=== PATIENT | male | born 1965 | race Caucasian/White ===

== ENCOUNTER 2024-09-27 12:47 | Emergency (ER) | payer OTHER ==
[~2024-09-27] VITALS: Ht 180.3 cm; Wt 90.6 kg
--- NOTE | 2024-09-27 13:26 | Physician Documentation ---
History of Present Illness ~ Chief Complaint: Toe pain Stated Complaint: POSS DVT Time Seen by MD: 15:40 OK to notify your PCP?: Yes Source: patient Mode of Arrival: POV [facility] Patient is seen today with complaints of pain and discoloration of his left great toe x 10 days. Patient states he just recently saw his primary care provider and was told he might have some kind of arterial occlusion and they were concerned for need for some kind of immediate intervention. Patient has no new or other concern or complaint at this time. Patient has history of extensive surgery to his right ankle however in his patient's left great toe that is in pain today. He reports for the past month having left hip pain which started radiating to his femur 3 weeks ago and down into the calf 1 week ago. He has had some extensive 10 hour car rides within the past month and several flights. He reports that his PCP did an x-ray of the left hip which was negative. Although he is still having pain with ambulation and standing can only walk about 100 yd before he has to rest. No anticoagulant use at home. Medication Reconciliation Allergies: Coded Allergies: No Known Allergies (Unverified , 09/27/24) Review of Systems All Other Systems at this time: Reviewed and Negative ROS Reviewed and negative except listed in HPI. Physical Exam Vital Signs: RN Vital Signs have been reviewed: Yes, Temperature: 98.0, Source: Temporal, Heart Rate: 94, Respiratory Rate: 18, BP: 147/81, Pulse Oximetry: 95, Weight: 90.600 Pulse Oximetry Reflects: adequate oxygenation Physical Exam General: conscious, coherent, non-toxic appearing, follows commands appropriately and in no apparent distress. Skin: Warm and dry without rash, good texture, and turgor. Neck: Supple. Trachea midline. No JVD. Chest: Good expansion without retractions or grunting. Lungs are clear to auscultation bilaterally. Heart: Regular rate and rhythm. S1 and S2 are normal. No murmurs, rubs, clicks, or gallops heard. Extremities: Full range of motion. Good strength, bilaterally. No clubbing. Peripheral pulses are intact, 2+ in left foot. Ecchymosis, tenderness and edema to left greater toe which is cool to the touch but good CSM. Tenderness to palpation of left calf. No tenderness to palpation of left hip, knee or thigh. Left MTP joint is normal on exam no evidence of edema, pain or redness. Neurologic: A&Ox4. Motor and sensory exam nonfocal. Moves all extremities. Speech is clear. Gait normal. CN II to XII intact. Progress Results/Orders Reviewed/noted all lab results: Yes Results/Orders Orders - THERESA CORTEZ OB/GYN Vl Venous (09/27/24 ) Vl Arterial (09/27/24 ) Vl Angelia (09/27/24 ) Cta Abdomen Lower Extr Runoff (09/27/24 18:30) Completed Orders - THERESA CORTEZ OB/GYN Vl Venous (09/27/24 ) Vl Arterial (09/27/24 ) Vl Angelia (09/27/24 ) Cbc/Diff (09/27/24 17:09) CMP (09/27/24 17:09) Ketorolac Trometh 30mg/Ml Vial (Toradol (09/27/24 17:25) Cta Abdomen Lower Extr Runoff (09/27/24 18:30) Iohexol 350mg/Ml 50ml Inj (Omnipaque 350 (09/27/24 18:20) Iohexol 350mg/Ml 100ml (Omnipaque 350mg/ (09/27/24 18:21) Vital Signs 09/27/24 09/27/24 09/27/24 09/27/24 13:18 16:10 18:17 19:44 Temp 98.0 98.0 98.0 Pulse 94 94 71 Resp 18 18 18 16 B/P (MAP) 147/81 142/84 (103) 100/52 (68) Pulse Ox 95 99 98 09/27/24 20:48 Temp 98.0 Pulse 62 Resp 16 B/P (MAP) 97/52 Pulse Ox 98 Laboratory Tests Test 09/27/24 17:17 White Blood Count 8.8 Red Blood Count 4.91 Hemoglobin 16.5 Hematocrit 46.8 Mean Corpuscular Volume 95.2 Mean Corpuscular Hemoglobin 33.5 H Mean Corpuscular Hemoglobin Concent 35.2 Red Cell Distribution Width 13.2 Platelet Count 213 Mean Platelet Volume 8.6 Neutrophils (%) (Auto) 53.3 Lymphocytes (%) (Auto) 33.6 Monocytes (%) (Auto) 7.5 Eosinophils (%) (Auto) 5.0 Basophils (%) (Auto) 0.6 Neutrophils # (Auto) 4.7 Lymphocytes # (Auto) 3.0 Monocytes # (Auto) 0.7 Eosinophils # (Auto) 0.4 Basophils # (Auto) 0.1 CBC Comment Sodium Level 143 Potassium Level 4.3 Chloride Level 108 H Carbon Dioxide Level 27.3 Anion Gap 8 Blood Urea Nitrogen 11 Creatinine 0.76 Estimated GFR/1.73 m2 > 90 BUN/Creatinine Ratio 14.5 Glucose Level 102 Calcium Level 8.5 Total Bilirubin 0.6 Aspartate Amino Transf (AST/SGOT) 17 Alanine Aminotransferase (ALT/SGPT) 30 Alkaline Phosphatase 80 Total Protein 6.3 L Albumin 3.6 Globulin 2.7 Albumin/Globulin Ratio 1.3 Chemistry Comments EKG/XRAY/CT/US/VASC/MRI Bone/Soft Tissue X-Ray (Ext.) : Interpreted By: self Views: 3 VIEW Additional Comment Left toe x-ray interpreted by me. Alignment is normal, no soft tissue swelling, no acute fracture. CT : Impression CT abdomen with extremities runoff interpreted by me. left lower extremity arteries are patent with no evidence of occlusion. There is some mild superficial subcutaneous edema at the left big toe. patent bilateral lower ex tremity arteries with no occlusion, dissection, aneurysm or critical stenosis. Vascular : Interpreted By: self Vascular Study: lower extremity arterial, lower extremity venous Impression Monophasic left leg, slow velocity, no DVT or occlusion. Medical Decision Making Findings Timmy is a 59-year-old male with left greater toe pain, ecchymosis, edema times 10 days. He does mention having left hip pain for the past month which is sensory radiated down to his calf in the past week. He does have some extensive travel with times of immobility in the past month. No known trauma to the leg. His physical exam reveals tenderness to his left calf and tenderness, ecchymosis, edema and cool to the touch left greater toe with good CSM in full range of motion. His MTP joint is not enlarged, hot or painful which would rule out a possible gout flare-up. Consulted with Dr. Best regarding assessment and treatment plan. He was evaluated by Dr. Best at the bedside. We ordered a left hip/extremity CT to rule out any acute fractures and a venous and arterial vascular study of the left leg to rule out an occlusion. His left leg Doppler arterial showed probable inflow disease from the left iliac with a monomorphic flow with low velocity. Left leg venous Doppler was negative for DVT. Due to this I have changed the CT of the hip to a CT angiogram of the left hip and ordered a CBC and CMP to check for infection, kidney function, liver function and electrolyte imbalances. CBC and CMP results are unremarkable, no evidence of kidney dysfunction. Offered morphine for pain control but patient declined and requested something less strong instead. IV Toradol ordered for pain relief. CT abdomen to lower extremity with runoff was ordered as it shows more of what we are looking for instead of just the left hip. And the results mentions all left lower extremity arteries are patent with no evidence of occlusion. There is some mild superficial subcutaneous edema at the left big toe. The impression shows patent bilateral lower extremity arteries with no occlusion, dissection, aneurysm or critical stenosis which is reassuring and this patient is stable for discharge. This patient was discharged with instructions to follow up with his primary care provider in the next 3 days who is located in [place] so I have attached his leg Doppler ultrasound results to his discharge paperwork so he can bring it with him have access to our EMR. He should return back here or any local emergency department for any new or worsening symptoms such as increase c oolness to his foot or toes, increased pain, or numbness/tingling of extremity. He was relieved to know that he would not need any admission or medications to be sent with him. He was instructed to use Tylenol and/or ibuprofen at home for pain relief. General Diff Dx:Considerations: Include: Neurovascular injury Toe Diff Dx:Considerations: Include: Cellulitis, Fracture, Hematoma, Neurovascular injury Additional Comment DVT, gout, arterial occlusion or arterial insufficiency. Departure Disposition: 01 HOME / SELF CARE / HOMELESS Impression: Primary Impression: Pain of toe Additional Impression: Toe swelling Condition: Stable Discharge Instructions: Acute Pain, Adult Additional Instructions: Follow-up with your primary care provider for a referral to a vascular surgeon. Today your ultrasound did not show any evidence of a DVT but did have some arterial inflow disease from the left iliac artery. There is no acute arterial occlusion that requires admission into the hospital. You can use Tylenol and ibuprofen to help with pain relief. Please return here for any new or worsening symptoms. Below is the results of your Doppler study for you to take in to the specialist. LEFT Lower Extremity Arterial Duplex Date: 09/27/2024 04:16 PM Clinical History: LEFT GREAT TOE DISCOLORATION AND PAIN Comparison: None Technique: Duplex Doppler evaluation including color Doppler and spectral/pulsed waveform analysis of the lower extremity arteries was performed. Finding: LEFT: Peak systolic velocities are as follows: GOLD LAYER 60.5 cm/s Deep femoral 34.3 cm/s SFA proximal 37.9 cm/s SFA mid-portion 49.9 cm/s SFA distal 30.7 cm/s Popliteal (AK) 17.8 cm/s Popliteal (BK) 30. cm/s Posterior tibial 32.2 cm/s Peroneal 18 cm/s Dorsalis pedis 18.6 cm/s The waveforms are monophasic waveform throughout. No findings of occlusion. REFERENCE VALUES, [facility]) vascular Imaging Lab Criteria: Peak systolic velocity ranges (in cm/sec) are as follows: <150 cm/s - <20 % stenosis 150-200 cm/s - 20-49% stenosis 200-300 cm/s - 50-75% stenosis >300 cm/s -> 75% stenosis IMPRESSION: 1. Findings consistent with inflow compromise throughout the left lower extremity. No segments of occlusion however there is monophasic waveform throughout. 2. No significant focal stenosis is identified. HS:Y Referrals: NO PRIMARY CARE PROVIDER (PCP) Education Educated: Patient, Family Educated regarding: diagnosis, treatment, prognosis, need for follow up Signature Scribe Signature: . Attestation: Scribed for Theresa Cortez [employer] by Theresa Ignacio NP . 09/30/24 14:49 MICHEAL PRINCE PAC September 27, 2024 13:26 THERESA CORTEZ OB/GYN September 27, 2024 16:03
--- NOTE | 2024-09-27 14:57 | RADIOLOGY REPORT ---
DI TOE(S), INDICATION: TOE PAIN TECHNICAL DATA: Frontal view of the left foot and lateral and oblique views of the great toe were obt ained. COMPARISON: None FINDINGS: No fracture is identified. Joint spaces are maintained. Alignment is anatomic. Soft tissues are withi n normal limits. IMPRESSION: No acute fracture or dislocation of the great toe.
[2024-09-27] MEDS ORDERED: ACET-890 PO (15:33)
--- NOTE | 2024-09-27 17:23 | VASCULAR REPORT ---
Left lower extremity venous duplex Clinical History: Pain Comparison: None Technique: Duplex Doppler evaluation of the deep venous system of the left lower extremity from the common femor al vein to the popliteal vein including color Doppler and spectral/pulsed waveform analysis was perfo rmed. Findings: The common femoral vein demonstrates appropriate compressibility and waveform variability . There is compressibility/patency of the great saphenous vein at the proximal thigh . The femoral vein demonstrates appropriate compressibility and waveform variability . The deep femoral vein demonstrates appropriate compressibility and waveform variability . The popliteal vein demonstrates appropriate compressibility and waveform variability . There is normal compressibility at the tibioperoneal trunk. Impression: No left femoropopliteal venous thrombosis. Contralateral common femoral vein is patent.
[2024-09-27 17:36] LABS: BASOPHILS # (AUTO) 0.1 X10'3 (0-0.2); BASOPHILS % (AUTO) 0.6 % (0-1); EOSINOPHILS # (AUTO) 0.4 X10'3 (0-0.9); HEMATOCRIT 46.8 % (42.0-52.0); HEMOGLOBIN 16.5 g/dl (14.0-17.9); LYMPHOCYTES % (AUTO) 33.6 % (21-51); MEAN CORPUSCULAR HEMOGLOBIN 33.5 PG (27.0-31.0); MEAN CORPUSCULAR HGB CONC 35.2 g/dL (33.0-36.5); MEAN CORPUSCULAR VOLUME 95.2 FL (78-98); MEAN PLATELET VOLUME 8.6 FL (7.4-10.4); MONOCYTES # (AUTO) 0.7 X10'3 (0-0.9); MONOCYTES % (AUTO) 7.5 % (2-12); NEUTROPHILS # (AUTO) 4.7 X10'3 (1.8-7.7); NEUTROPHILS % (AUTO) 53.3 % (42-75); PLATELET COUNT 213 X10'3 (140-440); RED BLOOD COUNT 4.91 X10'6 (4.70-6.10); RED CELL DISTRIBUTION WIDTH 13.2 % (11.5-14.5); WHITE BLOOD COUNT 8.8 X10'3 (4.5-11.0)
[2024-09-27 17:56] LABS: ALANINE AMINOTRANSFERASE 30 U/L (12-78); ALBUMIN 3.6 G/DL (3.4-5.0); ALBUMIN/GLOBULIN RATIO 1.3 (1.1-1.5); ALKALINE PHOSPHATASE 80 IU/L (46-116); ANION GAP 8 (8-16); ASPARTATE AMINO TRANSFERASE 17 U/L (10-37); BILIRUBIN,TOTAL 0.6 MG/DL (0.1-1.0); BLOOD UREA NITROGEN 11 MG/DL (7-18); BUN/CREATININE RATIO 14.5 (10.0-20.0); CALCIUM 8.5 MG/DL (8.5-10.1); CHLORIDE 108 MMOL/L (99-107); CREATININE 0.76 MG/DL (0.60-1.10); GLUCOSE 102 MG/DL (70-104); POTASSIUM 4.3 MMOL/L (3.5-5.1); SODIUM 143 MMOL/L (135-145); TOTAL CARBON DIOXIDE 27.3 MMOL/L (24-32); TOTAL PROTEIN 6.3 G/DL (6.4-8.2); eCRCL 110 ML/MIN; eGFR > 90 ML/MIN
[2024-09-27] MEDS: ketorolac trometh 30MG/ML vial 30 MG/ML VIAL IV ONE (18:17)
[2024-09-27] MEDS ORDERED: iohexol 350 MG/ML 50ML vial IV ONE (18:20)
[2024-09-27] MEDS ORDERED: iohexol 350MG/ML 100ml bottle IV ONE (18:21)
--- NOTE | 2024-09-27 18:44 | VASCULAR REPORT ---
EXAM: VASC VL CINTHIA ANKLE/BRACHIAL INDEX CLINICAL HISTORY: Left great toe pain, discoloration. COMPARISON: None TECHNIQUE: Bilateral systolic ankle and brachial pressures are obtained, with ankle pulse volume waveforms and i ndices. FINDINGS: Pressures: Right Left Brachial 120 mmHg PT 120 mmHg 90 mmHg AT 110 mmHg 80 mmHg CINTHIA: Right Left 1.0 .75 Pulse volume waveforms: Multiphasic in the right posterior tibial artery. Abnormal monophasic waveforms are seen in the right dorsalis pedis artery and left posterior tibial and dorsalis pedis arteries. IMPRESSION: 1. Normal right CINTHIA of 1.0. Left CINTHIA is moderately abnormal at 0.75, consistent with peripheral vascu lar disease. 2. Normal multiphasic waveforms in the right posterior tibial and abnormal monophasic waveforms in th e right dorsalis pedis and left posterior tibial and dorsalis pedis arteries. 1.0-1.4: normal 0.91-0.99 borderline 0.9: abnormal (i.e. PAD) 0.4-0.9: [id number] PAD <0.4: suggestive of severe PAD
--- NOTE | 2024-09-27 18:49 | VASCULAR REPORT ---
LEFT Lower Extremity Arterial Duplex Date: 09/27/2024 04:16 PM Clinical History: LEFT GREAT TOE DISCOLORATION AND PAIN Comparison: None Technique: Duplex Doppler evaluation including color Doppler and spectral/pulsed waveform analysis of the lower extremity arteries was performed. Finding: LEFT: Peak systolic velocities are as follows: [employer]ELOPER 60.5 cm/s Deep femoral 34.3 cm/s SFA proximal 37.9 cm/s SFA mid-portion 49.9 cm/s SFA distal 30.7 cm/s Popliteal (AK) 17.8 cm/s Popliteal (BK) 30. cm/s Posterior tibial 32.2 cm/s Peroneal 18 cm/s Dorsalis pedis 18.6 cm/s The waveforms are monophasic waveform throughout. No findings of occlusion. REFERENCE VALUES, [facility]) vascular Imaging Lab Criteria: Peak systolic velocity ranges (in cm/sec) are as follows: <150 cm/s - <20 % stenosis 150-200 cm/s - 20-49% stenosis 200-300 cm/s - 50-75% stenosis >300 cm/s -> 75% stenosis IMPRESSION: 1. Findings consistent with inflow compromise throughout the left lower extremity. No segments of occ lusion however there is monophasic waveform throughout. 2. No significant focal stenosis is identified. HS:Y
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
[2024-09-27 20:48] VITALS: BP 97/52; PULSE 62; RESP 16; TEMP 98; O2SAT 98
== END 2024-09-27 20:50 | disposition home or self-care (01) ==
LOC: ER 12:47
DX: M79.675 Pain in left toe(s) (principal); M79.89 Other specified soft tissue disorders
CPT/HCPCS: 36415; 73660; 75635; 80053; 85025; 93922; 93926; 93971; 96374; 99285; J1885; Q9967